=== PATIENT | female | born 1975 | race Caucasian/White ===

== ENCOUNTER 2021-09-02 08:22 | Emergency (ER) | payer OTHER ==
[~2021-09-02] VITALS: Ht 167.6 cm; Wt 70.0 kg
[2021-09-02 10:54] LABS: BASOPHILS % 0.8 % (0.0-2.0); EOSINOPHILS % 0.2 % (0.0-5.0); HEMATOCRIT. 33.1 % (36.0-48.0); HEMOGLOBIN. 10.7 g/dL (12.0-16.0); LYMPHOCYTES % 35.3 % (20.0-50.0); MEAN CORPUSCULAR HEMOGLOBIN 23.8 pg (28.0-32.0); MEAN CORPUSCULAR VOLUME 73.6 fL (81.0-99.0); MEAN PLATELET VOLUME 8.3 fl (7.4-10.4); NEUTROPHILS % 54.7 % (40.0-76.0); PLATELET 487 x1000/uL (130-400); RED BLOOD CELL COUNT 4.49 mill/uL (4.2-5.4); RED CELL DISTRIBUTION WIDTH 18.9 % (11.6-14.6)
[2021-09-02 11:00] LABS: CHLORIDE 111 mEq/L (98-107)
[2021-09-02 11:06] LABS: ETHANOL BLOOD < 10 mg/dL
[2021-09-02 11:24] LABS: HCG SCREEN NEGATIVE
[2021-09-02 22:07] LABS: *AMPHETAMINES SCREEN URINE NEGATIVE (NEGATIVE); *BARBITURATES SCREEN URINE NEGATIVE (NEGATIVE)
[2021-09-02 22:08] LABS: *COCAINE SCREEN URINE NEGATIVE (NEGATIVE); METHADONE URINE SCREEN NEGATIVE (NEGATIVE); OPIATES URINE SCREEN NEGATIVE (NEGATIVE); PHENCYCLIDINE URINE SCREEN NEGATIVE (NEGATIVE)
[2021-09-02 22:09] LABS: CANNABINOID URINE SCREEN NEGATIVE (NEGATIVE)
[2021-09-02 22:14] LABS: *BENZODIAZEPINES SCREEN URINE PRESUMTIVE POSITIVE (NEGATIVE)
[2021-09-02 22:22] LABS: CLARITY URINE CLEAR (CLEAR); COLOR URINE YELLOW (YELLOW); KETONES URINE NEGATIVE (NEGATIVE); LEUKOCYTE ESTERASE URINE NEGATIVE (NEGATIVE); NITRITE URINE NEGATIVE (NEGATIVE); OCCULT BLOOD URINE NEGATIVE (NEGATIVE); PH URINE 6.5 (4.5-8.0); PROTEIN URINE NEGATIVE (NEGATIVE); SPECIFIC GRAVITY URINE 1.011 (1.005-1.030); UROBILINOGEN URINE 0.2 E.U./dL (0.2-1.0)
[2021-09-03] MEDS ORDERED: SODIUM CHLORIDE 0.9% 1,000 ML IV ONE (02:45)
[2021-09-05] MEDS ORDERED: HALOPERIDOL LACTATE 5MG/ML VIAL IM ONE (03:15)
[2021-09-05] MEDS ORDERED: LORAZEPAM 2MG/ML CPJ IM ONE (03:15)
[2021-09-05] MEDS ORDERED: ARIPIPRAZOLE 5MG TABLET PO ONE (09:00)
[2021-09-05] MEDS ORDERED: ARIPIPRAZOLE 2MG TABLET PO NR (10:00)
[2021-09-05] MEDS: ARIPIPRAZOLE 2MG TABLET PO SCH (22:27)
[2021-09-06] MEDS: ARIPIPRAZOLE 2MG TABLET PO SCH (08:57)
[2021-09-06 13:21] VITALS: BP 108/70
== END 2021-09-06 13:36 | disposition home or self-care (01) ==
LOC: EDBD 08:32 → ER 08:32
DX: F23 Brief psychotic disorder (principal); G93.40 Encephalopathy, unspecified; D64.9 Anemia, unspecified; Z20.822 Contact with and (suspected) exposure to COVID-19
CPT/HCPCS: 36415; 70450; 80053; 80305; 80320; 81003; 84703; 85025; 96360; 96361; 96372; 99285; C9803; J1630; J2060; J7030; U0003; U0005; G0480